=== PATIENT | male | born 1950 | race Caucasian/White ===

== ENCOUNTER 2024-01-09 03:35 | Inpatient (IN) | payer MEDICARE, OTHER ==
[~2024-01-09] VITALS: Ht 193 cm; Wt 95.3 kg
[2024-01-09 04:58] LABS: BASOPHILS % (AUTO) 0.5 % (0.0-2.0); EOSINOPHILS # (AUTO) 0.4 K/uL (0.0-0.7); EOSINOPHILS % (AUTO) 3.9 % (0.0-6.0); HEMATOCRIT 35 % (39-51); HEMOGLOBIN 11.3 g/dL (13.5-17.5); LYMPHOCYTES # (AUTO) 2.2 K/uL (0.8-4.8); LYMPHOCYTES % (AUTO) 23.4 % (20.0-44.0); MEAN CORPUSCULAR HEMOGLOBIN 30 PG (26.0-33.0); MEAN CORPUSCULAR HGB CONC 33 g/dl (31.0-36.0); MEAN CORPUSCULAR VOLUME 91 fL (80-96); MONOCYTES # (AUTO) 1.2 K/uL (0.1-1.30); NEUTROPHILS # (AUTO) 5.8 K/uL (1.8-8.9); NEUTROPHILS % (AUTO) 60.2 % (43.0-81.0); PLATELET COUNT (AUTO) 465 K/uL (150-450); RED BLOOD CELL COUNT(AUTO) 3.81 MIL/uL (4.5-6.0); RED CELL DISTRIBUTION WIDTH 14.4 % (11.5-15.0); WHITE BLOOD COUNT (AUTO) 9.6 K/uL (4.3-11.0)
[2024-01-09 05:09] LABS: PROTHROMBIN TIME 10.6 SECS (9.2-11.1)
[2024-01-09 05:19] LABS: CALCIUM, SERUM 9.4 mg/dL (8.5-10.1); CARBON DIOXIDE 27 mmol/L (21-32); CHLORIDE 106 mmol/L (98-107); GLUCOSE 122 mg/dL (74-106); POTASSIUM 3.9 mmol/L (3.5-5.1); SODIUM SERUM 140 mmol/L (136-145); UREA NITROGEN, BLOOD 22 mg/dL (7-18)
[2024-01-09 05:25] LABS: ALANINE AMINOTRANSFERASE 29 U/L (12-78); ALBUMIN 2.8 g/dL (3.4-5.0); ALKALINE PHOSPHATASE 92 U/L (46-116); ASPARTATE AMINOTRANSFERASE 17 U/L (15-37); BILIRUBIN,TOTAL 0.7 mg/dL (0.2-1.0); TOTAL PROTEIN, SERUM 7.5 g/dL (6.4-8.2)
[2024-01-09] MEDS ORDERED: VANCOMYCIN 1 GM /D5W 250 ML PB IV ONE (05:51)
[2024-01-09] MEDS ORDERED: VANCOMYCIN 500 MG VIAL ONE (05:51)
[2024-01-09] MEDS: VANCOMYCIN HCL 1.25 GM in IV D5W 260 ML IV ONE (06:13)
[2024-01-09 08:12] VITALS: O2SAT 99
[2024-01-09] MEDS ORDERED: ONDANSETRON HCL/PF 4 MG/2 ML VIAL IVP PRN (09:30)
[2024-01-09] MEDS ORDERED: hydrALAZINE HCL IV 20 MG VIAL IV PRN (09:30)
[2024-01-09] MEDS ORDERED: VANCOMYCIN 1 GM VIAL ONE (09:39)
[2024-01-09] MEDS ORDERED: BUPIVACAINE 0.25% 75 MG/30 ML VIAL ONE (09:39)
[2024-01-09] MEDS ORDERED: POLYMYXIN B SULFATE 500,000 UNITS ONE (09:39)
[2024-01-09] MEDS ORDERED: FENTANYL PF 250MCG/5ML AMPUL ONE (09:47)
[2024-01-09] MEDS ORDERED: HYDROMORPHONE INJ 2 MG/ML DISP.SYRIN ONE (09:47)
[2024-01-09] MEDS ORDERED: ALBUTEROL SULFATE 8 GM HFA.AER.AD IH ONE ×2 (10:00)
[2024-01-09] MEDS ORDERED: ROCURONIUM BROMIDE 50 MG/5 ML ONE (10:41)
[2024-01-09] MEDS ORDERED: ALBUMIN 5% 250 ML IV ONE (10:58)
[2024-01-09] MEDS ORDERED: VASOPRESSIN INJ 20 UNIT/ML VIAL ONE (11:05)
[2024-01-09] MEDS ORDERED: diphenhydrAMINE HCL 50 MG/ML VIAL ONE (12:26)
[2024-01-09] MEDS ORDERED: HYDR-3980 PO (14:32)
[2024-01-09] MEDS ORDERED: NA P133E RC (14:32)
[2024-01-09] MEDS ORDERED: TRAZ-252 PO (14:32)
[2024-01-09] MEDS ORDERED: GABA300C PO (14:32)
[2024-01-09] MEDS ORDERED: MELA5TAB PO (14:32)
[2024-01-09] MEDS ORDERED: FINA5TAB11 PO (14:32)
[2024-01-09] MEDS ORDERED: ACET325T53 PO (14:32)
[2024-01-09] MEDS ORDERED: MAGN400O6 PO (14:32)
[2024-01-09] MEDS ORDERED: ASPI-1420 PO (14:32)
[2024-01-09] MEDS ORDERED: CELE-85 PO (14:32)
[2024-01-09] MEDS ORDERED: BISA10SU11 RC (14:32)
[2024-01-09] MEDS ORDERED: QUET50TA PO (14:32)
[2024-01-09] MEDS ORDERED: PRAV40TA3 PO (14:32)
[2024-01-09] MEDS ORDERED: TAMS-12 PO (14:32)
[2024-01-09] MEDS ORDERED: BUPR100T6 PO (14:32)
[2024-01-09] MEDS ORDERED: FAMO20TA29 PO (14:32)
[2024-01-09] MEDS ORDERED: VENL75TA4 PO (14:32)
[2024-01-09] MEDS ORDERED: DIVA125T32 PO (14:32)
[2024-01-09] MEDS ORDERED: ONDA4TAB11 PO (14:32)
[2024-01-09] MEDS ORDERED: OXYB5TAB16 PO (14:32)
[2024-01-09] MEDS: CEFTRIAXONE 1 G in IV D5W 50 ML IV SCH (15:10)
[2024-01-09] MEDS: DIVALPROEX SODIUM 125 MG TABLET.DR PO SCH (17:08)
[2024-01-09] MEDS: FAMOTIDINE (20 MG) 20 MG TABLET PO SCH (17:08)
[2024-01-09] MEDS: CELECOXIB 100 MG CAPSULE PO SCH (17:09)
[2024-01-09] MEDS: VANCOMYCIN 1 GM in IV D5W 250ml IV SCH (17:13)
[2024-01-09] MEDS: ACETAMINOPHEN 325 MG TABLET PO PRN (20:49)
[2024-01-09] MEDS: GABAPENTIN 300 MG CAPSULE PO SCH (21:43)
[2024-01-09] MEDS: TRAZODONE 50 MG TABLET PO SCH (21:43)
[2024-01-09] MEDS: QUETIAPINE FUMARATE 25 MG TABLET PO SCH (21:43)
[2024-01-09] MEDS: HYDROCODONE/APAP 10/325MG TABLET PO PRN (22:26)
[2024-01-10] MEDS: MORPHINE SULFATE INJ 2 MG/ML DISP.SYRIN IV PRN (00:54)
[2024-01-10] MEDS: HEPARIN SODIUM, PORCINE 5000 UNITS/1 ML VIAL SQ SCH (05:41)
[2024-01-10 06:40] LABS: BASOPHILS % (AUTO) 0.2 % (0.0-2.0); EOSINOPHILS % (AUTO) 0.2 % (0.0-6.0); HEMATOCRIT 34 % (39-51); HEMOGLOBIN 11.1 g/dL (13.5-17.5); LYMPHOCYTES # (AUTO) 2.1 K/uL (0.8-4.8); LYMPHOCYTES % (AUTO) 10.9 % (20.0-44.0); MEAN CORPUSCULAR HEMOGLOBIN 29 PG (26.0-33.0); MEAN CORPUSCULAR HGB CONC 33 g/dl (31.0-36.0); MEAN CORPUSCULAR VOLUME 90 fL (80-96); MONOCYTES % (AUTO) 10.4 % (2.0-12.0); NEUTROPHILS # (AUTO) 14.9 K/uL (1.8-8.9); NEUTROPHILS % (AUTO) 78.3 % (43.0-81.0); PLATELET COUNT (AUTO) 513 K/uL (150-450); RED BLOOD CELL COUNT(AUTO) 3.78 MIL/uL (4.5-6.0); RED CELL DISTRIBUTION WIDTH 14.5 % (11.5-15.0); WHITE BLOOD COUNT (AUTO) 19.1 K/uL (4.3-11.0)
[2024-01-10 08:00] VITALS: BP 134/84; TEMP 99.5; O2SAT 96
[2024-01-10] MEDS: TAMSULOSIN 0.4 MG CAP.SR.24H PO SCH (08:44)
[2024-01-10] MEDS: OXYBUTYNIN CHLORIDE 5 MG TABLET PO SCH (08:47)
[2024-01-10] MEDS: FINASTERIDE (5 MG) 5 MG TABLET PO SCH (08:48)
[2024-01-10] MEDS: ASPIRIN EC 81 MG TABLET.DR PO SCH (08:48)
[2024-01-10] MEDS: VENLAFAXINE 25 MG TABLET PO SCH (08:48)
[2024-01-10] MEDS: buPROPion SR 100 MG TABLET.ER PO SCH (08:48)
[2024-01-10] MEDS: ATORVASTATIN 10 MG TABLET PO SCH (08:48)
[2024-01-10 11:39] LABS: ALANINE AMINOTRANSFERASE 26 U/L (12-78); ALKALINE PHOSPHATASE 87 U/L (46-116); ASPARTATE AMINOTRANSFERASE 26 U/L (15-37); CARBON DIOXIDE 24 mmol/L (21-32); CHLORIDE 101 mmol/L (98-107); CREATININE 1.2 mg/dL (0.6-1.3); GLUCOSE 102 mg/dL (74-106); MAGNESIUM 2.1 mg/dL (1.8-2.4); PHOSPHORUS 3.5 mg/dL (2.5-4.9); POTASSIUM 3.4 mmol/L (3.5-5.1); SODIUM SERUM 136 mmol/L (136-145); TOTAL PROTEIN, SERUM 7.7 g/dL (6.4-8.2); UREA NITROGEN, BLOOD 15 mg/dL (7-18)
[2024-01-10] MEDS: POTASSIUM CHLORIDE 20 MEQ TAB.PRT.SR PO SCH (13:22)
[2024-01-10 16:07] VITALS: BP 114/79; TEMP 99.3; O2SAT 95
[2024-01-10 20:00] VITALS: BP 103/64; TEMP 99.1; O2SAT 95
[2024-01-11 06:57] LABS: BASOPHILS # (AUTO) 0.1 K/uL (0.0-0.2); BASOPHILS % (AUTO) 0.3 % (0.0-2.0); EOSINOPHILS # (AUTO) 0.2 K/uL (0.0-0.7); EOSINOPHILS % (AUTO) 1.4 % (0.0-6.0); HEMATOCRIT 33 % (39-51); HEMOGLOBIN 10.7 g/dL (13.5-17.5); LYMPHOCYTES # (AUTO) 1.6 K/uL (0.8-4.8); LYMPHOCYTES % (AUTO) 9.8 % (20.0-44.0); MEAN CORPUSCULAR HEMOGLOBIN 30 PG (26.0-33.0); MEAN CORPUSCULAR HGB CONC 33 g/dl (31.0-36.0); MEAN CORPUSCULAR VOLUME 93 fL (80-96); MONOCYTES # (AUTO) 2.1 K/uL (0.1-1.30); MONOCYTES % (AUTO) 12.7 % (2.0-12.0); NEUTROPHILS # (AUTO) 12.4 K/uL (1.8-8.9); NEUTROPHILS % (AUTO) 75.8 % (43.0-81.0); PLATELET COUNT (AUTO) 408 K/uL (150-450); RED BLOOD CELL COUNT(AUTO) 3.54 MIL/uL (4.5-6.0); RED CELL DISTRIBUTION WIDTH 15.1 % (11.5-15.0); WHITE BLOOD COUNT (AUTO) 16.4 K/uL (4.3-11.0)
[2024-01-11 07:24] LABS: CALCIUM, SERUM 9.1 mg/dL (8.5-10.1); CARBON DIOXIDE 15 mmol/L (21-32); CHLORIDE 105 mmol/L (98-107); GLUCOSE 112 mg/dL (74-106); MAGNESIUM 2.5 mg/dL (1.8-2.4); PHOSPHORUS 3.2 mg/dL (2.5-4.9); POTASSIUM 4.3 mmol/L (3.5-5.1); SODIUM SERUM 135 mmol/L (136-145); UREA NITROGEN, BLOOD 20 mg/dL (7-18)
[2024-01-11 08:00] VITALS: BP 144/77; TEMP 99.5; O2SAT 98
[2024-01-11] MEDS: CEFEPIME 1 GM in IV D5W 50 ML IV SCH (13:00)
[2024-01-11 16:00] VITALS: BP 130/89; TEMP 99; O2SAT 96
[2024-01-11 20:00] VITALS: BP 130/90; TEMP 98.2; O2SAT 95
[2024-01-12 06:55] LABS: BASOPHILS # (AUTO) 0.1 K/uL (0.0-0.2); BASOPHILS % (AUTO) 0.7 % (0.0-2.0); EOSINOPHILS # (AUTO) 0.2 K/uL (0.0-0.7); EOSINOPHILS % (AUTO) 1.9 % (0.0-6.0); HEMATOCRIT 32 % (39-51); HEMOGLOBIN 10.4 g/dL (13.5-17.5); LYMPHOCYTES # (AUTO) 1.4 K/uL (0.8-4.8); LYMPHOCYTES % (AUTO) 11.4 % (20.0-44.0); MEAN CORPUSCULAR HEMOGLOBIN 29 PG (26.0-33.0); MEAN CORPUSCULAR HGB CONC 33 g/dl (31.0-36.0); MEAN CORPUSCULAR VOLUME 88 fL (80-96); MONOCYTES # (AUTO) 1.5 K/uL (0.1-1.30); MONOCYTES % (AUTO) 12.2 % (2.0-12.0); NEUTROPHILS # (AUTO) 9.4 K/uL (1.8-8.9); NEUTROPHILS % (AUTO) 73.8 % (43.0-81.0); PLATELET COUNT (AUTO) 418 K/uL (150-450); RED BLOOD CELL COUNT(AUTO) 3.59 MIL/uL (4.5-6.0); RED CELL DISTRIBUTION WIDTH 14.1 % (11.5-15.0); WHITE BLOOD COUNT (AUTO) 12.7 K/uL (4.3-11.0)
[2024-01-12 07:30] VITALS: BP 109/81; TEMP 98.4; O2SAT 100
[2024-01-12 07:33] LABS: IRON, SERUM 15 ug/dl (50-175); TOTAL IRON BINDING CAPACITY 149 ug/dl (250-450)
[2024-01-12 07:35] LABS: CALCIUM, SERUM 9.2 mg/dL (8.5-10.1); CARBON DIOXIDE 24 mmol/L (21-32); CHLORIDE 106 mmol/L (98-107); CREATININE 0.9 mg/dL (0.6-1.3); GLUCOSE 119 mg/dL (74-106); MAGNESIUM 2.1 mg/dL (1.8-2.4); POTASSIUM 3.5 mmol/L (3.5-5.1); SODIUM SERUM 140 mmol/L (136-145); UREA NITROGEN, BLOOD 18 mg/dL (7-18)
[2024-01-12 16:01] VITALS: BP 120/69; TEMP 98.1; O2SAT 96
[2024-01-12 20:00] VITALS: BP 114/77; TEMP 98.4; O2SAT 95
[2024-01-13 06:13] LABS: BASOPHILS # (AUTO) 0.1 K/uL (0.0-0.2); BASOPHILS % (AUTO) 0.7 % (0.0-2.0); EOSINOPHILS # (AUTO) 0.4 K/uL (0.0-0.7); EOSINOPHILS % (AUTO) 4.3 % (0.0-6.0); HEMATOCRIT 31 % (39-51); HEMOGLOBIN 10.2 g/dL (13.5-17.5); LYMPHOCYTES # (AUTO) 1.8 K/uL (0.8-4.8); LYMPHOCYTES % (AUTO) 18.2 % (20.0-44.0); MEAN CORPUSCULAR HEMOGLOBIN 30 PG (26.0-33.0); MEAN CORPUSCULAR HGB CONC 33 g/dl (31.0-36.0); MEAN CORPUSCULAR VOLUME 90 fL (80-96); MONOCYTES % (AUTO) 10.7 % (2.0-12.0); NEUTROPHILS # (AUTO) 6.4 K/uL (1.8-8.9); NEUTROPHILS % (AUTO) 66.1 % (43.0-81.0); PLATELET COUNT (AUTO) 420 K/uL (150-450); RED BLOOD CELL COUNT(AUTO) 3.38 MIL/uL (4.5-6.0); RED CELL DISTRIBUTION WIDTH 14.6 % (11.5-15.0); WHITE BLOOD COUNT (AUTO) 9.6 K/uL (4.3-11.0)
[2024-01-13 06:30] LABS: CALCIUM, SERUM 9.6 mg/dL (8.5-10.1); CARBON DIOXIDE 24 mmol/L (21-32); CHLORIDE 105 mmol/L (98-107); GLUCOSE 114 mg/dL (74-106); POTASSIUM 3.6 mmol/L (3.5-5.1); SODIUM SERUM 139 mmol/L (136-145); UREA NITROGEN, BLOOD 22 mg/dL (7-18)
[2024-01-13 16:00] VITALS: BP 109/72; TEMP 98.4; O2SAT 93
[2024-01-13 20:00] VITALS: BP 124/82; TEMP 98.3; O2SAT 95
[2024-01-14 06:36] LABS: BASOPHILS # (AUTO) 0.1 K/uL (0.0-0.2); BASOPHILS % (AUTO) 0.6 % (0.0-2.0); EOSINOPHILS # (AUTO) 0.4 K/uL (0.0-0.7); EOSINOPHILS % (AUTO) 3.4 % (0.0-6.0); HEMATOCRIT 29 % (39-51); HEMOGLOBIN 9.3 g/dL (13.5-17.5); LYMPHOCYTES % (AUTO) 17.2 % (20.0-44.0); MEAN CORPUSCULAR HEMOGLOBIN 29 PG (26.0-33.0); MEAN CORPUSCULAR HGB CONC 32 g/dl (31.0-36.0); MEAN CORPUSCULAR VOLUME 88 fL (80-96); MONOCYTES # (AUTO) 1.4 K/uL (0.1-1.30); MONOCYTES % (AUTO) 12.2 % (2.0-12.0); NEUTROPHILS # (AUTO) 7.6 K/uL (1.8-8.9); NEUTROPHILS % (AUTO) 66.6 % (43.0-81.0); PLATELET COUNT (AUTO) 434 K/uL (150-450); RED BLOOD CELL COUNT(AUTO) 3.25 MIL/uL (4.5-6.0); RED CELL DISTRIBUTION WIDTH 14.1 % (11.5-15.0); WHITE BLOOD COUNT (AUTO) 11.4 K/uL (4.3-11.0)
[2024-01-14 06:47] LABS: CALCIUM, SERUM 9.7 mg/dL (8.5-10.1); CARBON DIOXIDE 24 mmol/L (21-32); CHLORIDE 105 mmol/L (98-107); GLUCOSE 103 mg/dL (74-106); POTASSIUM 3.6 mmol/L (3.5-5.1); SODIUM SERUM 140 mmol/L (136-145); UREA NITROGEN, BLOOD 23 mg/dL (7-18)
[2024-01-14 08:14] VITALS: BP 142/73; TEMP 98.2; O2SAT 98
[2024-01-14] MEDS ORDERED: CEFT1VIA15 IV (10:32)
[2024-01-14] MEDS ORDERED: VANC1PLA9 IV (10:32)
[2024-01-14 16:20] VITALS: BP 119/75; TEMP 98.5; O2SAT 95
[2024-01-14 20:30] VITALS: BP 118/69; TEMP 98.4; O2SAT 97
[2024-01-15 07:40] LABS: BASOPHILS # (AUTO) 0.1 K/uL (0.0-0.2); BASOPHILS % (AUTO) 0.8 % (0.0-2.0); EOSINOPHILS # (AUTO) 0.3 K/uL (0.0-0.7); EOSINOPHILS % (AUTO) 3.5 % (0.0-6.0); HEMATOCRIT 29 % (39-51); HEMOGLOBIN 9.7 g/dL (13.5-17.5); LYMPHOCYTES # (AUTO) 1.9 K/uL (0.8-4.8); LYMPHOCYTES % (AUTO) 21.5 % (20.0-44.0); MEAN CORPUSCULAR HEMOGLOBIN 30 PG (26.0-33.0); MEAN CORPUSCULAR HGB CONC 34 g/dl (31.0-36.0); MEAN CORPUSCULAR VOLUME 87 fL (80-96); MONOCYTES # (AUTO) 1.1 K/uL (0.1-1.30); MONOCYTES % (AUTO) 12.2 % (2.0-12.0); NEUTROPHILS # (AUTO) 5.3 K/uL (1.8-8.9); PLATELET COUNT (AUTO) 453 K/uL (150-450); RED BLOOD CELL COUNT(AUTO) 3.28 MIL/uL (4.5-6.0); RED CELL DISTRIBUTION WIDTH 14.1 % (11.5-15.0); WHITE BLOOD COUNT (AUTO) 8.6 K/uL (4.3-11.0)
[2024-01-15 07:54] LABS: CALCIUM, SERUM 8.9 mg/dL (8.5-10.1); CARBON DIOXIDE 27 mmol/L (21-32); CHLORIDE 104 mmol/L (98-107); GLUCOSE 118 mg/dL (74-106); POTASSIUM 3.7 mmol/L (3.5-5.1); SODIUM SERUM 140 mmol/L (136-145); UREA NITROGEN, BLOOD 20 mg/dL (7-18)
[2024-01-15 08:00] VITALS: BP 141/71; TEMP 99.3; O2SAT 97
[2024-01-15] MEDS: CEFTRIAXONE 1 G in IV D5W 50 ML IV SCH (12:07)
[2024-01-15] MEDS: VANCOMYCIN 1 GM in IV D5W 250ml IV SCH (13:04)
[2024-01-15 16:00] VITALS: BP 121/73; TEMP 98.9; O2SAT 96
== END 2024-01-15 18:40 | disposition home health service (06) | DRG 486 ==
LOC: ER 03:45 → MED 13:04
PROVIDERS: ADMIT Internal Medicine; ATTEND Internal Medicine
PROC: 0SUW09Z Supplement Left Knee Joint, Tibial Surface with Liner, Open Approach (ICD-10-PCS; principal; 2024-01-09)
PROC: 0SPD09Z Removal of Liner from Left Knee Joint, Open Approach (ICD-10-PCS; 2024-01-09)
PROC: 05HC33Z Insertion of Infusion Device into Left Basilic Vein, Percutaneous Approach (ICD-10-PCS; 2024-01-12)
PROC: B54NZZA Ultrasonography of Left Upper Extremity Veins, Guidance (ICD-10-PCS; 2024-01-12)
PROC: 02HV33Z Insertion of Infusion Device into Superior Vena Cava, Percutaneous Approach (ICD-10-PCS; 2024-01-14)
PROC: B548ZZA Ultrasonography of Superior Vena Cava, Guidance (ICD-10-PCS; 2024-01-14)
DX: T84.54XA Infection and inflammatory reaction due to internal left knee prosthesis, initial encounter (principal); T81.32XA Disruption of internal operation (surgical) wound, not elsewhere classified, initial encounter; Y83.1 Surgical operation with implant of artificial internal device as the cause of abnormal reaction of the patient, or of later complication, without mention of misadventure at the time of the procedure; S83.015A Lateral dislocation of left patella, initial encounter; D64.9 Anemia, unspecified; E78.5 Hyperlipidemia, unspecified; W18.30XA Fall on same level, unspecified, initial encounter; F32.9 Major depressive disorder, single episode, unspecified; Y93.9 Activity, unspecified; Y92.129 Unspecified place in nursing home as the place of occurrence of the external cause
CPT/HCPCS: 36415; 36569; 71045-TC; 73564-TC; 80048-TC; 80053-TC; 80202-TC; 82962-TC; 83540-TC; 83605-TC; 83735-TC; 84100-TC; 85025-TC; 85610-TC; 87040-TC; 88300-TC; 88305-TC; 97112-TC; 97116-TC; 97530-TC; A4217; A4223; A6253; A6403; C1713; C1776; G0378; J0690; J0692; J0696; J1100; J1170; J1200; J1644; J1885; J2270; J2405; J2704; J3010; J3370; J3490; J7050; J7060; L1830; P9045